=== PATIENT | female | born 1960 | race Caucasian/White ===

== ENCOUNTER 2020-04-21 07:20 | Emergency (ER) | payer MEDICAID ==
[~2020-04-21] VITALS: Ht 170.2 cm; Wt 92.0 kg
[2020-04-21 07:23] VITALS: BP 122/66
--- NOTE | 2020-04-21 07:46 | NUR ---
PROVIDER BEDSIDE COMPLETING EXAM.
--- NOTE | 2020-04-21 07:54 | NUR ---
PT C/O OF INABILITY TO CLOSE RIGHT EYE OR MOVE THE RIGHT SIDE OF HER MOUTH LIKE NORMALLY. PT STATES SHE HAD A RECENT PRESCRIPTION FOR HERPES THAT SHE STOPPED DUE TO FEELING DIZZY.
== END 2020-04-21 09:06 | disposition home or self-care (01) ==
LOC: ED 08:17
DX: H60.11 Cellulitis of right external ear (principal); G51.0 Bell's palsy; B02.8 Zoster with other complications; Z90.49 Acquired absence of other specified parts of digestive tract
CPT/HCPCS: 93005; 99283

== ENCOUNTER 2020-05-05 20:00 | Emergency (ER) | payer MEDICAID ==
[~2020-05-05] VITALS: Ht 170.2 cm; Wt 89.1 kg
[2020-05-05] MEDS ORDERED: ONDANSETRON ODT 8 MG PO ONE (20:30)
[2020-05-05] MEDS ORDERED: MECLIZINE CHEWABLE 25 MG TAB PO ONE (20:30)
[2020-05-05] MEDS ORDERED: ONDANSETRON ODT 4 MG ONE (20:33)
[2020-05-05] MEDS ORDERED: MECLIZINE CHEWABLE 25 MG TAB ONE (20:33)
[2020-05-05 20:40] LABS: BASOPHILS % (AUTO) 1 % (0-1); EOSINOPHILS % (AUTO) 1 % (1-7); LYMPHOCYTES % (AUTO) 45 % (22-44); MEAN CORPUSCULAR HEMOGLOBIN 31.5 pg (27.0-34.8); MEAN CORPUSCULAR HGB CONC 33.7 g/dL (32.4-35.8); MEAN PLATELET VOLUME 6.8 fL (7.4-10.4); MONOCYTES % (AUTO) 7 % (2-9); NEUTROPHILS % (AUTO) 47 % (42-75); PLATELET COUNT 254 x10^3/uL (130-400); RED BLOOD COUNT 5.32 x10^6/uL (3.82-5.3); RED CELL DISTRIBUTION WIDTH 13.6 % (9.6-15.2)
[2020-05-05 20:47] LABS: MD NO
[2020-05-05 20:48] LABS: ALANINE AMINOTRANSFERASE 27 U/L (12-78); ALBUMIN 3.6 g/dL (3.4-5.0); ANION GAP 5 mmol/L (5-15); CALCIUM 9.4 mg/dL (8.5-10.1); CHLORIDE 107 mmol/L (98-107)
[2020-05-05 20:50] LABS: ALKALINE PHOSPHATASE 70 U/L (45-117); BILIRUBIN,TOTAL 0.6 mg/dL (0.2-1.0)
--- NOTE | 2020-05-05 22:11 | NUR ---
PT D/C WITH D/C SUMMARY AND SCRIPTS. ALL QUESTIONS ANSWERED. PT AMBULATES TO REGISTRATION DESK WITH STEADY GAIT AND DENIES ANY OTHER NEEDS PERTAINING TO THIS VISIT. PT PROVIDED A TAXI VOUCHER FOR SAFE D/C OF PT HOME.
[2020-05-05 22:13] VITALS: BP 134/77
== END 2020-05-05 22:15 | disposition home or self-care (01) ==
LOC: ED 21:30
DX: R42 Dizziness and giddiness (principal); R00.0 Tachycardia, unspecified; R11.2 Nausea with vomiting, unspecified; J44.9 Chronic obstructive pulmonary disease, unspecified; Z90.49 Acquired absence of other specified parts of digestive tract
CPT/HCPCS: 36415; 70450; 80053; 80307; 85025; 93005; 99285